=== PATIENT | male | born 1965 | race Caucasian/White ===

== ENCOUNTER → 2018-04-16 | Outpatient (CLI) | payer OTHER ==
[~2018-04-16] MED LIST: ATOR10TA9 PO; LISI-167 PO
[2018-04-16 15:19] LABS: ALANINE AMINOTRANSFERASE 65 U/L (12-78); ALBUMIN 4.2 g/dL (3.4-5.0); ANION GAP 5 mmol/L (5-15); CALCIUM 8.7 mg/dL (8.5-10.1); CHLORIDE 106 mmol/L (98-107)
[2018-04-16 15:22] LABS: ALKALINE PHOSPHATASE 70 U/L (45-117); BILIRUBIN,TOTAL 0.6 mg/dL (0.2-1.0); CREATININE 1.22 mg/dL (0.7-1.3); TOTAL PROTEIN 7.5 g/dL (6.4-8.2)
== END | disposition home or self-care (01) ==
LOC: STAR 14:11
PROVIDERS: ATTEND Orthopaedic Surgery
DX: Z01.818 Encounter for other preprocedural examination (principal); M75.42 Impingement syndrome of left shoulder
CPT/HCPCS: 36415; 80053

== ENCOUNTER 2018-04-21 11:28 | Day surgery (SDC) | payer OTHER ==
[~2018-04-21] VITALS: Ht 182.9 cm; Wt 104.7 kg
[2018-04-21] MEDS ORDERED: LACTATED RINGERS 1,000 ML IV SCH (11:59)
[2018-04-21] MEDS ORDERED: OxyconTIN ER 20 MG TAB.ER PO ONE (12:00)
[2018-04-21] MEDS ORDERED: GABAPENTIN 300 MG CAPSULE PO ONE (12:00)
[2018-04-21] MEDS ORDERED: ACETAMINOPHEN 500 MG TABLET PO ONE (12:00)
[2018-04-21] MEDS ORDERED: BUPIVACAINE/PF-EPI 0.25% 1:200K ONE (12:28)
[2018-04-21] MEDS ORDERED: MIDAZOLAM 1 MG/ML, 2ML ONE (12:29)
[2018-04-21] MEDS ORDERED: FENTANYL PF 250 MCG/5ML ONE (12:29)
[2018-04-21 12:30] VITALS: BP 120/84
[2018-04-21] MEDS ORDERED: FENTANYL PF 100 MCG/2ML IV PRN (12:30)
[2018-04-21] MEDS ORDERED: HYDROmorphone 1 MG/ML, 1ML IV PRN (12:30)
[2018-04-21] MEDS ORDERED: hydrALAzine 20 MG/ML, 1ML IV PRN (12:30)
[2018-04-21] MEDS ORDERED: OXYcodone 5 MG/5 ML ORAL.SOL UDC PO PRN (12:30)
[2018-04-21] MEDS ORDERED: PROCHLORPERAZINE 5 MG/ML, 2ML IV PRN (12:30)
[2018-04-21] MEDS ORDERED: MEPERIDINE/PF 25MG/0.5ML IVPush PRN (12:30)
[2018-04-21] MEDS ORDERED: LABETALOL 5MG/ML, 20ML IV PRN (12:30)
[2018-04-21] MEDS ORDERED: DIPHENHYDRAMINE 50 MG/ML, 1ML IVPush PRN (12:30)
[2018-04-21] MEDS ORDERED: NEOSTIGMINE 1 MG/ML, 10ML ONE (13:22)
[2018-04-21] MEDS ORDERED: SUCCINYLCHOLINE 20 MG/ML, 10ML ONE (13:22)
[2018-04-21] MEDS ORDERED: ONDANSETRON 2MG/ML, 2ML ONE (13:22)
[2018-04-21] MEDS ORDERED: DEXAMETHASONE 4 MG/ML, 1ML ONE (13:22)
[2018-04-21] MEDS ORDERED: ROCURONIUM 10 MG/ML,10ML ONE (13:22)
[2018-04-21] MEDS ORDERED: GLYCOPYRROLATE 0.2MG/1ML, 5ML ONE (13:22)
[2018-04-21] MEDS ORDERED: PROPOFOL 10 MG/ML, 20ML ONE (13:22)
[2018-04-21] MEDS ORDERED: CEFAZOLIN 1,000 MG ONE (13:22)
== END 2018-04-21 17:00 | disposition home or self-care (01) ==
LOC: OUT 11:28
PROVIDERS: ATTEND Orthopaedic Surgery
DX: S43.432A Superior glenoid labrum lesion of left shoulder, initial encounter (principal); M75.02 Adhesive capsulitis of left shoulder; M25.812 Other specified joint disorders, left shoulder; M19.012 Primary osteoarthritis, left shoulder; I10 Essential (primary) hypertension; E78.5 Hyperlipidemia, unspecified; X58.XXXA Exposure to other specified factors, initial encounter; Y93.89 Activity, other specified; Y92.89 Other specified places as the place of occurrence of the external cause; Y99.8 Other external cause status
CPT/HCPCS: 29822; 29824; 29825; 29826; 64415; J0330; J0690; J1100; J2250; J2405; J2704; J2710; J3010; J3490; J7120